=== PATIENT | female | born 1940 | race Caucasian/White ===

== ENCOUNTER → 2017-09-10 | Outpatient (CLI) | payer MEDICARE, BC ==
[2017-09-10 10:09] LABS: HCT 40.6 % (34.0-46.0); HGB 13.4 gm/dL (11.4-16.0); MCH 29.9 pg (25.0-35.0); MCHC 32.9 g/dL (31.0-37.0); MCV 90.9 fL (80.0-100.0); Mean Platelet Volume 6.7; Platelet Count 235 k/uL (150-450); RBC 4.47 m/uL (3.80-5.40); RDW 12.2 % (11.5-15.5); WBC 5.6 k/uL (3.8-10.6)
[2017-09-10 10:19] LABS: ALT 31 U/L (9-52); AST 21 U/L (14-36); Alkaline Phosphatase 60 U/L (38-126); Anion Gap 9 mmol/L; Blood Urea Nitrogen 11 mg/dL (7-17); Calcium 9.5 mg/dL (8.4-10.2); Carbon Dioxide 30 mmol/L (22-30); Chloride 105 mmol/L (98-107); Cholesterol 185 mg/dL (<200); Glucose 96 mg/dL (74-99); HDL Cholesterol 76 mg/dL (40-60); LDL Cholesterol,Calculated 89 mg/dL (0-99); Potassium 3.9 mmol/L (3.5-5.1); Sodium 144 mmol/L (137-145); Total Bilirubin 0.4 mg/dL (0.2-1.3); Total Protein 6.4 g/dL (6.3-8.2); Triglycerides 98 mg/dL (<150)
== END | disposition home or self-care (01) ==
LOC: LABWHC1 09:28
PROVIDERS: ATTEND Family Medicine
DX: E06.9 Thyroiditis, unspecified (principal); I10 Essential (primary) hypertension; E78.00 Pure hypercholesterolemia, unspecified
CPT/HCPCS: 36415; 80053; 80061; 84439; 84443; 85027

== ENCOUNTER → 2018-09-02 | Outpatient (CLI) | payer MEDICARE, BC ==
[2018-09-02 10:22] LABS: HCT 40.3 % (34.0-46.0); HGB 13.3 gm/dL (11.4-16.0); MCH 29.4 pg (25.0-35.0); MCHC 32.9 g/dL (31.0-37.0); MCV 89.3 fL (80.0-100.0); Mean Platelet Volume 6.7; Platelet Count 184 k/uL (150-450); RBC 4.52 m/uL (3.80-5.40); RDW 12.7 % (11.5-15.5); WBC 4.7 k/uL (3.8-10.6)
[2018-09-02 16:25] LABS: Albumin 4.3 g/dL (3.80-4.90); Albumin/Globulin Ratio 2.53 (1.20-2.10); Anion Gap 2.4 mmol/L (4.00-12.00); Calcium 8.9 mg/dL (8.7-10.3); Carbon Dioxide 27.6 mmol/L (21.6-31.8); Globulin 1.7 g/dL (1.6-3.3); LDL Cholesterol,Calculated 111.2 mg/dL (0.0-131.0); Potassium 4.2 mmol/L (3.5-5.5); Total Bilirubin 0.6 mg/dL (0.2-1.2); VLDL Calculation 15.8 mg/dL (5.00-40.00)
== END | disposition home or self-care (01) ==
LOC: LABWHC1 09:26
PROVIDERS: ATTEND Family Medicine
DX: E78.5 Hyperlipidemia, unspecified (principal); E03.9 Hypothyroidism, unspecified; I10 Essential (primary) hypertension
CPT/HCPCS: 36415; 80053; 80061; 84443; 85027

== ENCOUNTER → 2019-09-24 | Outpatient (CLI) | payer MEDICARE, BC ==
[2019-09-24 08:41] LABS: MCH 30.7 pg (25.0-35.0); MCHC 33.3 g/dL (31.0-37.0); MCV 92.3 fL (80.0-100.0); Mean Platelet Volume 7.5; Platelet Count 180 k/uL (150-450); RBC 4.56 m/uL (3.80-5.40); RDW 12.6 % (11.5-15.5)
[2019-09-24 19:05] LABS: African American GFR (CKD) 81.8 (60.0-200.0); Albumin 4.4 g/dL (3.80-4.90); Albumin/Globulin Ratio 2.44 (1.60-3.17); Anion Gap 11.1 mmol/L (4.00-12.00); BUN/Creat Ratio 18.75 Ratio (12.00-20.00); Calcium 9.3 mg/dL (8.7-10.3); Carbon Dioxide 26.9 mmol/L (21.6-31.8); Chol/HDL Ratio 2.73; Globulin 1.8 g/dL (1.6-3.3); LDL Cholesterol,Calculated 104.4 mg/dL (0.0-131.0); Non-African American GFR(CKD) 70.6 (60.0-200.0); Potassium 4.3 mmol/L (3.5-5.5); Total Bilirubin 0.5 mg/dL (0.3-1.2); Total Protein 6.2 g/dL (6.2-8.2); VLDL Calculation 21.6 mg/dL (5.00-40.00)
== END | disposition home or self-care (01) ==
LOC: LABWHC1 08:00
PROVIDERS: ATTEND Family Medicine
DX: E78.2 Mixed hyperlipidemia (principal); I10 Essential (primary) hypertension; E03.9 Hypothyroidism, unspecified
CPT/HCPCS: 36415; 80053; 80061; 84443; 85027

== ENCOUNTER 2024-10-03 11:47 | Inpatient (IN) | payer MEDICARE, BC ==
--- NOTE | 2024-10-03 12:09 | ED ---
General Adult HPI - General Chief complaint: Syncope Stated complaint: Syncope Time Seen by Provider: 10/03/24 11:50 Source: patient, family, EMS, RN notes reviewed Mode of arrival: EMS Limitations: no limitations - History of Present Illness Initial comments: Patient is an 84-year-old female present to the emergency department with syncopal episode. Episode occurred just prior to arrival. Patient was with her son when she started to appear drowsy and leaned towards him. Patient was lowered to the ground and did become unresponsive for 2 to 3 minutes. Following this patient awoke and has returned to normal. Patient does have memory problems and family does have concern with her ability to live at home. - Related Data Home Medications Medication Instructions Recorded Confirmed Levothyroxine Sodium [Synthroid] 75 mcg PO DAILY 10/03/24 10/03/24 lisinopriL [Zestril] 5 mg PO DAILY 10/03/24 10/03/24 Allergies Allergy/AdvReac Type Severity Reaction Status Date / Time No Known Allergies Allergy Verified 10/03/24 12:54 Review of Systems ROS Statement: Those systems with pertinent positive or pertinent negative responses have been documented in the HPI. ROS Other: All systems not noted in ROS Statement are negative. Constitutional: Denies: fever Eyes: Denies: eye pain ENT: Denies: ear pain Respiratory: Denies: dyspnea Cardiovascular: Denies: chest pain Endocrine: Denies: fatigue Gastrointestinal: Denies: abdominal pain Past Medical History Past Medical History: Hypertension Past Psychological History: No Psychological Hx Reported General Exam Limitations: no limitations General appearance: alert, in no apparent distress Head exam: Present: atraumatic, normocephalic Eye exam: Present: normal appearance, PERRL, EOMI ENT exam: Present: normal oropharynx Neck exam: Present: normal inspection. Absent: tenderness, meningismus Respiratory exam: Present: normal lung sounds bilaterally Cardiovascular Exam: Present: regular rate, normal rhythm GI/Abdominal exam: Present: soft. Absent: tenderness Extremities exam: Present: normal inspection Neurological exam: Present: alert, CN II-XII intact. Absent: motor sensory deficit Expanded Neurological exam: Present: protecting the airway Patient oriented to: Absent: person (Oriented only to the first name.), place, time Speech: Present: fluid speech Motor strength exam: RUE: 5, LUE: 5, RLE: 5, LLE: 5 Eye Response: (4) open spontaneously Motor Response: (6) obeys commands Verbal Response: (4) confused conversation Psychiatric exam: Present: normal affect, normal mood Skin exam: Present: normal color Course Vital Signs 10/03/24 11:56 Temperature 96.2 F L Pulse Rate 80 Respiratory 17 Rate Blood Pressure 119/77 O2 Sat by Pulse 96 Oximetry EKG Findings - EKG Results: EKG: interpreted by ERMD (Left axis. LVH criteria.), sinus rhythm, normal ST/T Medical Decision Making - Medical Decision Making Was pt. sent in by a medical professional or institution (, PA, LAND CLEARER, urgent care, hospital, or fpc...) When possible be specific @ -No Did you speak to anyone other than the patient for history (EMS, parent, family, police, friend...)? What history was obtained from this source @ -Family is present helps provide a history of the episode and patient's difficulty living at home Did you review nursing and triage notes (agree or disagree)? Why? @ -I reviewed and agree with nursing and triage notes Were old charts reviewed (outside hosp., previous admission, EMS record, old E KG, old radiological studies, urgent care reports/EKG's, fpc records)? Report findings @ -No old charts were reviewed Differential Diagnosis (chest pain, altered mental status, abdominal pain women, abdominal pain men, vaginal bleeding, weakness, fever, dyspnea, syncope, headache, dizziness, GI bleed, back pain, seizure, CVA, palpatations, mental health, musculoskeletal)? @ -Differential Syncope: Valvular disease, hypertrophic cardiomyopathy, pulmonary embolism, tamponade, tachycardia, bradycardia, WI, hypovolemia, hemorrhage, dissection, anemia, intracranial hemorrhage, seizure, hypoglycemia, carbon monoxide poisoning, this is not meant to be an all-inclusive list. EKG interpreted by me (3pts min.). @ -As above X-rays interpreted by me (1pt min.). @ -Chest x-ray shows no acute process CT interpreted by me (1pt min.). @ -CT scan of the brain does not reveal acute intracranial abnormality U/S interpreted by me (1pt. min.). @ -None done What testing was considered but not performed or refused? (CT, X-rays, U/S, labs)? Why? @ -None What meds were considered but not given or refused? Why? @ -None Did you discuss the management of the patient with other professionals (professionals i.e. , PA, LAND CLEARER, lab, RT, psych nurse, transition social worker, ergonomic specialist, teacher, combat information center officer, corrections caseworker)? Give summary @ -Case with discussed with Dr. Landis and Dr. Milian who will admit covering Dr. Chinchilla, time Was smoking cessation discussed for >3mins.? @ -No Was critical care preformed (if so, how long)? @ -No Were there social determinants of health that impacted care today? How? (Homelessness, low income, unemployed, alcoholism, drug addiction, transportation, low edu. Level, literacy, decrease access to med. care, custodial, rehab)? @ -No Was there de-escalation of care discussed even if they declined (Discuss DNR or withdrawal of care, Hospice)? DNR status @ -No What co-morbidities impacted this encounter? (DM, HTN, Smoking, COPD, CAD, Cancer, CVA, ARF, Chemo, Hep., AIDS, mental health diagnosis, sleep apnea, morbid obesity)? @ -None Was patient admitted / discharged? Hospital course, mention meds given and route, prescriptions, significant lab abnormalities, going to OR and other pertinent info. @ -Patient presents with syncopal episode, resolved on arrival. Eval unremarkable at this time. Patient does have apparent advanced dementia. Patient will be admitted with cardiac consult, admission orders written. Patient reevaluated and patient and family updated. Patient will likely need some sort of placement. Undiagnosed new problem with uncertain prognosis? @ -No Drug Therapy requiring intensive monitoring for toxicity (Heparin, Nitro, Insulin, Cardizem)? @ -No Were any procedures done? @ -No Diagnosis/symptom? @ -Syncope Acute, or Chronic, or Acute on Chronic? @ -Acute Uncomplicated (without systemic symptoms) or Complicated (systemic symptoms)? @ -Default Side effects of treatment? @ -No Exacerbation, Progression, or Severe Exacerbation? @ -No Poses a threat to life or bodily function? How? (Chest pain, USA, WI, pneumonia, PE, COPD, DKA, ARF, appy, cholecystitis, CVA, Diverticulitis, Homicidal, Suicidal, threat to staff... and all critical care pts) @ -No - Lab Data Result diagrams: 10/03/24 12:31 10/03/24 12:31 Lab Results 10/03/24 10/03/24 10/03/24 Range/Units 12:31 12:31 12:31 WBC 3.8 (3.8-10.6) k/uL RBC 4.15 (3.80-5.40) m/uL Hgb 12.6 (11.4-16.0) gm/dL Hct 37.4 (34.0-46.0) % MCV 90.1 (80.0-100.0) fL MCH 30.3 (25.0-35.0) pg MCHC 33.6 (31.0-37.0) g/dL RDW 12.3 (11.5-15.5) % Plt Count 156 (150-450) k/uL MPV 7.5 Neutrophils % 75 % Lymphocytes % 13 % Monocytes % 10 % Eosinophils % 0 % Basophils % 0 % Neutrophils # 2.9 (1.3-7.7) k/uL Lymphocytes # 0.5 L (1.0-4.8) k/uL Monocytes # 0.4 (0-1.0) k/uL Eosinophils # 0.0 (0-0.7) k/uL Basophils # 0.0 (0-0.2) k/uL PT 10.8 (10.0-12.5) sec INR 1.0 (<1.2) APTT 22.7 (22.0-30.0) sec D-Dimer 0.35 (<0.60) mg/L FEU Sodium 140 (137-145) mmol/L Potassium 3.9 (3.5-5.1) mmol/L Chloride 103 (98-107) mmol/L Carbon Dioxide 32 H (22-30) mmol/L Anion Gap 5 mmol/L BUN 20 H (7-17) mg/dL Creatinine 0.92 (0.52-1.04) mg/dL Est GFR (CKD-EPI)AfAm 67 (>60 ml/min/1.73 sqM) Est GFR (CKD-EPI)NonAf 58 (>60 ml/min/1.73 sqM) Glucose 109 H (74-99) mg/dL Calcium 8.8 (8.4-10.2) mg/dL Magnesium 2.3 (1.6-2.3) mg/dL Total Bilirubin 0.5 (0.2-1.3) mg/dL AST 43 H (14-36) U/L ALT 38 H (4-34) U/L Alkaline Phosphatase 55 (38-126) U/L Troponin I (0.000-0.034) ng/mL Total Protein 6.2 L (6.3-8.2) g/dL Albumin 3.9 (3.5-5.0) g/dL 10/03/24 Range/Units 12:31 WBC (3.8-10.6) k/uL RBC (3.80-5.40) m/uL Hgb (11.4-16.0) gm/dL Hct (34.0-46.0) % MCV (80.0-100.0) fL MCH (25.0-35.0) pg MCHC (31.0-37.0) g/dL RDW (11.5-15.5) % Plt Count (150-450) k/uL MPV Neutrophils % % Lymphocytes % % Monocytes % % Eosinophils % % Basophils % % Neutrophils # (1.3-7.7) k/uL Lymphocytes # (1.0-4.8) k/uL Monocytes # (0-1.0) k/uL Eosinophils # (0-0.7) k/uL Basophils # (0-0.2) k/uL PT (10.0-12.5) sec INR (<1.2) APTT (22.0-30.0) sec D-Dimer (<0.60) mg/L FEU Sodium (137-145) mmol/L Potassium (3.5-5.1) mmol/L Chloride (98-107) mmol/L Carbon Dioxide (22-30) mmol/L Anion Gap mmol/L BUN (7-17) mg/dL Creatinine (0.52-1.04) mg/dL Est GFR (CKD-EPI)AfAm (>60 ml/min/1.73 sqM) Est GFR (CKD-EPI)NonAf (>60 ml/min/1.73 sqM) Glucose (74-99) mg/dL Calcium (8.4-10.2) mg/dL Magnesium (1.6-2.3) mg/dL Total Bilirubin (0.2-1.3) mg/dL AST (14-36) U/L ALT (4-34) U/L Alkaline Phosphatase (38-126) U/L Troponin I <0.012 (0.000-0.034) ng/mL Total Protein (6.3-8.2) g/dL Albumin (3.5-5.0) g/dL Disposition Clinical Impression: Syncope Disposition: ADMITTED IP TO THIS HOSP Is patient prescribed a controlled substance at d/c from ED?: No Referrals: Ravindra Chinchilla MD [Primary Care Provider] - 1-2 days Time of Disposition: 14:00
[2024-10-03 12:47] LABS: Basophils % (A) 0 %; Eosinophils % (A) 0 %; HCT 37.4 % (34.0-46.0); HGB 12.6 gm/dL (11.4-16.0); Lymphocytes # (A) 0.5 k/uL (1.0-4.8); Lymphocytes % (A) 13 %; MCH 30.3 pg (25.0-35.0); MCHC 33.6 g/dL (31.0-37.0); MCV 90.1 fL (80.0-100.0); Mean Platelet Volume 7.5; Monocytes # (A) 0.4 k/uL (0-1.0); Monocytes % (A) 10 %; Neutrophils # (A) 2.9 k/uL (1.3-7.7); Neutrophils % (A) 75 %; Platelet Count 156 k/uL (150-450); RBC 4.15 m/uL (3.80-5.40); RDW 12.3 % (11.5-15.5); WBC 3.8 k/uL (3.8-10.6)
[2024-10-03 12:57] LABS: ALT 38 U/L (4-34); AST 43 U/L (14-36); African American GFR (CKD) 67 (>60 ml/min/1.73 sqM); Albumin 3.9 g/dL (3.5-5.0); Alkaline Phosphatase 55 U/L (38-126); Anion Gap 5 mmol/L; Blood Urea Nitrogen 20 mg/dL (7-17); Calcium 8.8 mg/dL (8.4-10.2); Carbon Dioxide 32 mmol/L (22-30); Chloride 103 mmol/L (98-107); Glucose 109 mg/dL (74-99); Magnesium 2.3 mg/dL (1.6-2.3); Non-African American GFR(CKD) 58 (>60 ml/min/1.73 sqM); Potassium 3.9 mmol/L (3.5-5.1); Sodium 140 mmol/L (137-145); Total Bilirubin 0.5 mg/dL (0.2-1.3); Total Protein 6.2 g/dL (6.3-8.2)
[2024-10-03 13:10] LABS: Partial Thromboplastin Time 22.7 sec (22.0-30.0); Prothrombin Time 10.8 sec (10.0-12.5)
--- NOTE | 2024-10-03 13:28 | CT ---
EXAMINATION TYPE: CT brain wo con DATE OF EXAM: 10/03/2024 COMPARISON: None CLINICAL INDICATION: Female, 84 years old with history of syncope; PHH, AMS CT DLP: 1095.9 mGycm Automated exposure control for dose reduction was used. Findings: The ventricles, basal cisterns and sulci over convexities are moderately enlarged consistent with mod erate generalized atrophy, appropriate for the patient's age. There is moderate decreased density in the periventricular white matter consistent with chronic ische yolanda white matter demyelination. There is no mass effect or shift of midline structures. There is no acute intra or extra-axial hemorrhage. The posterior fossa including the brainstem, fourth ventricle and cerebellopontine angles appear kathe sly normal. The intraorbital contents appear normal symmetric There is an air-fluid level in the right maxillary sinus ingesting acute sinusitis. The mastoid air c ells are well aerated Calvarium is intact. IMPRESSION: 1. Age appropriate senescent changes as described above. 2. acute bleed or mass effect. 3.acute right maxillary sinusitis. [facility], , 10/03/2024 1:25 PM
--- NOTE | 2024-10-03 13:30 | XR ---
Chest, 2 view. HISTORY: Syncope COMPARISON: None TECHNIQUE: PA and lateral views the chest are obtained. FINDINGS: The lungs are clear and there is no consolidative or interstitial opacity. There is no pleural effusion or pneumothorax. The heart, pulmonary vasculature, mediastinum and delgado appear normal. The osseous structures are intact. IMPRESSION: No significant abnormality seen. No acute cardiopulmonary disease. [facility], Workstation: [facility], 10/03/2024 1:28 PM
[2024-10-03] MEDS ORDERED: NALOXONE 0.4 MG/ML 1 ML VIAL IV PRN (14:00)
--- NOTE | 2024-10-04 03:03 | HP ---
HISTORY AND PHYSICAL CHIEF COMPLAINT: Syncope. HISTORY OF PRESENT ILLNESS: This is an 84-year-old woman with a past medical history of multiple medical problems including dementia, was apparently living by herself and the family is planning to make some arrangements for ASC placement. However, the patient had a syncopal episode and the patient also appears to be drowsy and leaning towards the patient. The patient became unresponsive for 2 to 3 minutes. Currently, the patient is confused, unable to give any coherent history. The patient is admitted for further evaluation and treatment. There is no history of any fever, rigors, or chills. PAST MEDICAL HISTORY: Reviewed including hypertension, dementia. Rest of the history and rest of the chart is also reviewed. HOME MEDICATIONS: Synthroid. ALLERGIES: None. FAMILY HISTORY: Could not be taken. SOCIAL HISTORY: Could not be taken. REVIEW OF SYSTEMS: Could not be taken. PHYSICAL EXAMINATION: VITAL SIGNS: Pulse is 80, blood pressure 119/76, respirations 17. HEENT: Conjunctivae normal. NECK: No JVD. CARDIOVASCULAR: S1, S2. RESPIRATIONS: Breath sounds diminished at the bases. A few scattered rhonchi. ABDOMEN: Soft, nontender. LEGS: No edema. NERVOUS SYSTEM: Nonfocal. LABORATORY DATA: Noted. ASSESSMENT: 1. Change in mental status and syncope, rule out acute stroke. 2. Dementia. 3. Hypertension. 4. Gait dysfunction. RECOMMENDATIONS AND DISCUSSION: This is an 84-year-old woman, who presented with multiple complex medical issues, we will monitor the patient closely. Continue the current management and continue symptomatic treatment. I recommend Cardiology, Neurology consultation for evaluation of syncope, rule out stroke. Otherwise, a brain CT which was reviewed showed no acute changes. Guarded prognosis because of multiple complex medical issues. Further recommendations to follow. See orders for further details. MMODL / IJN: [id number] /
[2024-10-04] MEDS: LEVOTHYROXINE 75 MCG TAB PO SCH (05:58)
--- NOTE | 2024-10-04 07:32 | US ---
EXAMINATION TYPE: US carotid duplex BILAT DATE OF EXAM: 10/03/2024 COMPARISON: NONE CLINICAL INDICATION: Female, 84 years old with history of stroke; syncope Additional History: R55 Syncope TECHNIQUE: Grayscale, color Doppler and spectral Doppler evaluation of the bilateral carotid systems and vertebral arteries. Indirect Doppler criteria was utilized. FINDINGS: EXAM MEASUREMENTS: RIGHT: Peak Systolic Velocity (PSV) cm/sec ----- Right CCA: 57.5 ----- Right ICA: 67.1 ----- Right ECA: 86.4 ICA/CCA ratio: 1.2 RIGHT: End Diastole cm/sec ----- Right CCA: 12.2 ----- Right ICA: 13.1 ----- Right ECA: 9.9 LEFT: Peak Systolic Velocity (PSV) cm/sec ----- Left CCA: 57.6 ----- Left ICA: 68.5 ----- Left ECA: 59.2 ICA/CCA ratio: 1.2 LEFT: End Diastole cm/sec ----- Left CCA: 13.7 ----- Left ICA: 15.9 ----- Left ECA: 8.9 VERTEBRALS (direction of flow): Right Vertebral: Antegrade Left Vertebral: Antegrade Rhythm: Normal COLD ROLLING MACHINE SETTER NOTES: No significant stenosis seen Color Doppler imaging shows patency with blood flow throughout the carotid artery. Spectral waveforms are within normal limits. IMPRESSION: Right: No hemodynamically significant stenosis. Left: No hemodynamically significant stenosis. Criteria for Assigning % of Stenosis / Diameter reduction (Estimation based on the indirect measurements of the internal carotid artery velocities (ICA PSV). 1. Normal (no stenosis)=ICA PSV < 125 cm/s: ratio < 2.0: ICA EDV<40 cm/s. 2. Less than 50% stenosis=ICA PSV < 125 cm/s: ratio < 2.0: ICA EDV<40 cm/s. 3. 50 to 69% stenosis=ICA PSV of 125 to 230 cm/s: ration 2.0 ? 4.0: ICA EDV 40-100 cm/s. 4. Greater than 70% stenosis to near occlusion= ICA PSV > 230 cm/s: ratio > 4.0: ICA EDV > 100 cm/s. 5. Near occlusion= ICA PSV velocities may be low or undetectable: variable ratio and ICA EDV. 6. Total occlusion=unable to detect flow. [facility], , 10/04/2024 7:30 AM
[2024-10-04 07:45] VITALS: RESP 16; TEMP 98.3
[2024-10-04 08:40] LABS: BUN/Creat Ratio 17.62 Ratio (12.00-20.00); Blood Urea Nitrogen 14.1 mg/dL (9.0-27.0); Chloride 107 mmol/L (96-109); Glucose 83 mg/dL (70-110); Sodium 141 mmol/L (135-145)
[2024-10-04 08:41] LABS: Calcium 8.3 mg/dL (8.7-10.3); Carbon Dioxide 25.3 mmol/L (21.6-31.8)
[2024-10-04] MEDS ORDERED: [UNRECOGNIZED DRUG - OTHER] PO SCH (09:00)
[2024-10-04] MEDS: lisinopriL 5 MG TAB PO SCH (09:09)
[2024-10-04 10:07] LABS: Basophils # (A) 0.01 X 10*3/uL (0.00-0.10); Basophils % (A) 0.3 %; Eosinophils # (A) 0.01 X 10*3/uL (0.04-0.35); Eosinophils % (A) 0.3 %; HCT 36.2 % (37.2-46.3); HGB 12.4 g/dL (12.0-15.0); Lymphocytes # (A) 1.21 X 10*3/uL (0.90-5.00); Lymphocytes % (A) 33.8 %; MCH 30.9 pg (27.0-32.0); MCHC 34.3 g/dL (32.0-37.0); MCV 90.3 FL (80.0-97.0); Mean Platelet Volume 10.1 FL (9.5-12.2); NRBC Per 100 WBC 0 X 10*3/uL (0.00-0.01); Neutrophils # (A) 1.84 X 10*3/uL (1.80-7.70); Neutrophils % (A) 51.3 %; Platelet Count 148 X 10*3/uL (140-440); RBC 4.01 X 10*6/uL (4.10-5.20); RDW 12.7 % (11.5-14.5); WBC 3.58 X 10*3/uL (4.50-10.00)
--- NOTE | 2024-10-04 10:18 | P.CRDCN ---
History of Present Illness History of present illness: HISTORY OF PRESENTING ILLNESS This is a pleasant 84-year-old female past medical history significant for hypertension and hypothyroidism. She does not follow in the office with a elementary school social worker for any reason. We have been asked to see in consultation for syncope. Her nephew was in the room with her, she is mostly nonverbal. He was at hinduism with her yesterday when she started becoming flushed. He helped her take her cold off however she continued to become lethargic and drowsy so they laid her down. According to him she then started snoring and was unresponsive but breathing for about 3 minutes. This has never happened to her in the past. She has no prior history of heart disease, cardiac catheterization or major surgeries to her body. DIAGNOSTICS EKG reveals sinus rhythm heart rate of 67 with left anterior fascicular block. Telemetry tracings indicate sinus rhythm with no evidence of arrhythmia or bradycardia. Chest xray negative for any acute cardiopulmonary process. Bilateral carotid Doppler negative for significant stenosis. Laboratory reviewed, CBC unremarkable, sodium 141, potassium 4, creatinine 0.8, cardiac enzymes negative x 3. Current cardiac medications include lisinopril 5 mg daily. REVIEW OF SYSTEMS At the time of my exam, information obtained from her nephew as she is mostly nonverbal: CONSTITUTIONAL: Denies fever or chills. CARDIOVASCULAR: Denies chest pain, shortness of breath, orthopnea, PND or palpitations. RESPIRATORY: Denies cough. GASTROINTESTINAL: Denies abdominal pain, diarrhea, constipation, nausea or vomiting. MUSCULOSKELETAL: Denies myalgias. NEUROLOGIC: Denies numbness, tingling, headache or weakness. ENDOCRINE: Denies fatigue, weight change, polydipsia or polyurina. GENITOURINARY: Denies burning, hematuria or urgency with micturation. HEMATOLOGIC: Denies history of anemia or bleeding. PHYSICAL EXAMINATION Blood pressure 117/64 heart rate 58 afebrile and maintaining oxygen saturation on room air. CONSTITUTIONAL: No apparent distress. HEENT: Head is normocephalic. Pupils are equal, round. Sclerae anicteric. Mucous membranes of the mouth are moist. No JVD. No carotid bruit. CHEST EXAMINATION: Lungs are clear to auscultation. No chest wall tenderness is noted on palpation or with deep breathing. HEART EXAMINATION: Regular rate and rhythm. S1, S2 heard. Systolic ejection murmur at the base, 1/6, no gallops or rub. ABDOMEN: Soft, nontender. EXTREMITIES: 2+ peripheral pulses, no lower extremity edema and no calf tenderness. NEUROLOGIC EXAMINATION: Patient is awake, alert and oriented x3. Nonverbal. ASSESSMENT Syncope Hypertension PLAN An acute coronary event has been ruled out. Echo has been ordered and will be reviewed. No evidence of significant arrhythmia or bradycardia noted on telemetry. 1 week event monitor at discharge. Follow-up in the office with Dr. Teixeira in 2 to 3 weeks. Stable for discharge from a cardiac perspective for discharge. Thank you kindly for this consultation. Nurse Practitioner note has been reviewed, I agree with a documented findings and plan of care. Patient was seen and examined. Past Medical History Past Medical History: Hypertension History of Any Multi-Drug Resistant Organisms: None Reported Additional Past Surgical History / Comment(s): Thyroidectomy Past Psychological History: No Psychological Hx Reported Smoking Status: Never smoker Medications and Allergies Home Medications Medication Instructions Recorded Confirmed Type Levothyroxine Sodium [Synthroid] 75 mcg PO DAILY 10/03/24 10/03/24 History lisinopriL [Zestril] 5 mg PO DAILY 10/03/24 10/03/24 History Allergies Allergy/AdvReac Type Severity Reaction Status Date / Time No Known Allergies Allergy Verified 10/03/24 12:54 Physical Exam Vitals: Vital Signs Temp Pulse Pulse Resp BP BP Pulse Ox 10/04/24 07:00 98.3 F 58 L 16 117/64 96 10/04/24 01:27 98.5 F 74 18 121/66 96 10/03/24 19:49 98.8 F 75 16 159/70 98 10/03/24 19:24 98.2 F 73 18 108/62 98 10/03/24 18:00 97.9 F 68 17 111/58 96 10/03/24 14:00 97.8 F 72 18 122/68 96 10/03/24 11:56 96.2 F L 80 17 119/77 96 Intake and Output 10/03/24 10/04/24 10/04/24 22:59 06:59 14:59 Other: # Voids 1 1 Results 10/04/24 04:55 10/04/24 04:55 Cardiac Enzymes 10/03/24 10/03/24 10/03/24 Range/Units 12:31 12:31 15:29 AST 43 H (14-36) U/L Troponin I <0.012 <0.012 (0.000-0.034) ng/mL 10/03/24 Range/Units 18:31 AST (14-36) U/L Troponin I <0.012 (0.000-0.034) ng/mL Coagulation 10/03/24 Range/Units 12:31 PT 10.8 (10.0-12.5) sec APTT 22.7 (22.0-30.0) sec CBC 10/03/24 10/04/24 Range/Units 12:31 04:55 WBC 3.8 3.58 L (3.8-10.6) k/uL RBC 4.15 4.01 L (3.80-5.40) m/uL Hgb 12.6 12.4 (11.4-16.0) gm/dL Hct 37.4 36.2 L (34.0-46.0) % Plt Count 156 148 (150-450) k/uL Comprehensive Metabolic Panel 10/03/24 10/04/24 Range/Units 12:31 04:55 Sodium 140 141 (137-145) mmol/L Potassium 3.9 4.0 (3.5-5.1) mmol/L Chloride 103 107 (98-107) mmol/L Carbon Dioxide 32 H 25.3 (22-30) mmol/L BUN 20 H 14.1 (7-17) mg/dL Creatinine 0.92 0.8 (0.52-1.04) mg/dL Glucose 109 H 83 (74-99) mg/dL Calcium 8.8 8.3 L (8.4-10.2) mg/dL AST 43 H (14-36) U/L ALT 38 H (4-34) U/L Alkaline Phosphatase 55 (38-126) U/L Total Protein 6.2 L (6.3-8.2) g/dL Albumin 3.9 (3.5-5.0) g/dL Current Medications Generic Name Dose Route Start Last Admin Trade Name Freq PRN Reason Stop Dose Admin Levothyroxine Sodium 75 mcg 10/04/24 06:30 10/04/24 05:58 Levothyroxine 75 Mcg Tab PO 75 mcg DAILY@0630 MARC Administration Lisinopril 5 mg 10/04/24 09:00 10/04/24 09:09 Lisinopril 5 Mg Tab PO 5 mg DAILY MARC Administration Naloxone HCl 0.2 mg 10/03/24 14:00 Naloxone 0.4 Mg/Ml 1 Ml Vial IV Q2M PRN Opioid Reversal Intake and Output 10/03/24 10/04/24 10/04/24 22:59 06:59 14:59 Other: # Voids 1 1 10/04/24 04:55 10/04/24 04:55
--- NOTE | 2024-10-04 13:21 | CA ---
Transthoracic Echo Report Name: Katlin Pina Age: 84 Gender: F : 1940 Exam Date: 10/04/2024 10:43 Exam Location: [facility] Ht (in): 63 Wt (lb): 115 Ordering Physician: Jarocho Milian MD Attending/Referring Phys: Sanding Machine Operator Or Tender Lorna Anderson RDCS Procedure CPT: Indications: stroke Cardiac Hx: Technical Quality: Fair Contrast 1: Total Dose (mL): Contrast 2: Total Dose (mL): MEASUREMENTS (Male / Female) Normal Values 2D ECHO LV Diastolic Diameter PLAX 4.4 cm 4.2 - 5.9 / 3.9 - 5.3 cm LV Systolic Diameter PLAX 2.5 cm IVS Diastolic Thickness 1.2 cm 0.6 - 1.0 / 0.6 - 0.9 cm LVPW Diastolic Thickness 1.0 cm 0.6 - 1.0 / 0.6 - 0.9 cm LV Relative Wall Thickness 0.5 RV Internal Dim ED PLAX 1.8 cm LA Systolic Diameter LX 2.9 cm 3.0 - 4.0 / 2.7 - 3.8 cm LV Diastolic Volume MOD BP 40.8 cm??? 67 - 155 / 56 - 104 cm??? LV Systolic Volume MOD BP 16.8 cm??? 22 - 58 / 19 - 49 cm??? LV Ejection Fraction MOD BP 58.8 % >= 55 % LV Cardiac Index MOD BP 1323.7 cm???/min???m??? LV Diastolic Volume MOD 4C 47.1 cm??? LV Systolic Volume MOD 4C 22.1 cm??? LV Ejection Fraction MOD 4C 53.1 % LV Cardiac Index MOD 4C 1381.4 cm???/min???m??? LV Diastolic Length 4C 6.3 cm LV Systolic Length 4C 5.3 cm LV Diastolic Volume MOD 2C 31.7 cm??? LV Systolic Volume MOD 2C 12.6 cm??? LV Ejection Fraction MOD 2C 60.3 % LV Cardiac Index MOD 2C 1054.9 cm???/min???m??? LV Diastolic Length 2C 5.5 cm LV Systolic Length 2C 5.0 cm LA Volume 39.3 cm??? 18 - 58 / 22 - 52 cm??? LA Volume Index 25.8 cm???/m??? 16 - 28 cm???/m??? M-MODE Aortic Root Diameter MM 2.9 cm LA Systolic Diameter MM 2.8 cm LA Ao Ratio MM 1.0 AV Cusp Separation MM 1.9 cm DOPPLER AV Peak Velocity 153.0 cm/s AV Peak Gradient 9.4 mmHg AI Peak Velocity 375.0 cm/s AI Peak Gradient 56.3 mmHg AI Pressure Half Time 775.4 ms MV Area PHT 3.1 cm??? Mitral E Point Velocity 74.5 cm/s Mitral A Point Velocity 112.8 cm/s Mitral E to A Ratio 0.7 MV Deceleration Time 241.8 ms TR Peak Velocity 216.8 cm/s TR Peak Gradient 18.8 mmHg Right Ventricular Systolic Press 23.7 mmHg FINDINGS Left Ventricle Left ventricular ejection fraction is estimated at 55-60 %. Mildly increased septal wall thickness. Normal left ventricular systolic function with no obvious regional wall motion abnormalities. Left ventricular cavity size normal. Right Ventricle Normal right ventricular size and function. Right ventricular systolic pressure within normal limits. Right Atrium Normal right atrial size. Left Atrium Normal left atrial size. Mitral Valve Structurally normal mitral valve. [id number] mitral regurgitation. No mitral stenosis. Aortic Valve Trileaflet aortic valve. Diffuse thickening (sclerosis) of the aortic valve cusps without reduced excursion. Moderate aortic regurgitation. Tricuspid Valve Structurally normal tricuspid valve. Mild tricuspid regurgitation. No tricuspid stenosis. Pulmonic Valve Structurally normal pulmonic valve. Moderate pulmonic regurgitation. No pulmonic stenosis. Pericardium No pericardial or pleural effusion. Aorta Normal size aortic root and proximal ascending aorta. CONCLUSIONS Normal LV size and systolic function. Mild to moderate eccentric mitral regurgitation. Moderate aortic regurgitation. Mild tricuspid regurgitation. No pericardial Previewed by: Dr. Rohith Teixeira MD (Electronically Signed) Final Date: 04 October 2024 13:20
[2024-10-04 14:11] VITALS: BP 115/62; PULSE 81
[2024-10-04] MEDS: levETIRAcetam 250 MG TAB PO SCH (14:42)
--- NOTE | 2024-10-04 15:16 | P.CNNES ---
History of Present Illness Consult date: 10/04/24 Requesting physician: Jarocho Milian Reason for Consult: ???stroke History of Present Illness: This is an 84-year-old woman who presented emergency department because of episode of unresponsive with shaking of the extremity. Patient is accompanied with her nephew (Willis) who is at bedside. Yesterday she was at [employer] and around 1030 or 10:40 AM in the morning she leaned on her nephew side (which is her right side). Patient became unresponsive and had shaking of the right upper extremity. He stated the episode lasted for about 3 minutes. Her eyes was closed during this episode. Seems after the episode she had urinary incontinence. She was confused after the episode for 2 to 3 minutes. At baseline patient has history of fusion. Patient does not have any history of dementia. She has limited language but per the nephew she is able to interact with him and has better verbal communication to him as well as the media monitor. Patient resides by herself. No history of seizure or stroke per the nephew. Patient could not tell me if she had any warning sign prior to her passing out episode yesterday. Some of the workup during this hospital visit consisted of: I reviewed the lab workup. CT of the head is reported as age-appropriate senescent changes as described above. I personally reviewed the CT and there is no acute or subacute stroke as well as there is no bleed. Carotid duplex there is no hemodynamically significant stenosis. The echo is completed and the report is normal left ventricle size systolic function. Mild to moderate eccentric mitral regurgitation. Moderate aortic regurgitation. Review of Systems Limited but as per HPI. Past Medical History Past Medical History: Hypertension History of Any Multi-Drug Resistant Organisms: None Reported Additional Past Surgical History / Comment(s): Thyroidectomy Past Psychological History: No Psychological Hx Reported Smoking Status: Never smoker Medications and Allergies Home Medications Medication Instructions Recorded Confirmed Type Levothyroxine Sodium [Synthroid] 75 mcg PO DAILY 10/03/24 10/03/24 History lisinopriL [Zestril] 5 mg PO DAILY 10/03/24 10/03/24 History levETIRAcetam [Keppra] 250 mg PO Q12HR #60 tab 10/04/24 Rx Allergies Allergy/AdvReac Type Severity Reaction Status Date / Time No Known Allergies Allergy Verified 10/03/24 12:54 Physical Examination - Vital Signs Vital Signs: Vital Signs Temp Pulse Pulse Resp BP BP Pulse Ox 10/04/24 14:10 98.3 F 81 16 115/62 98 10/04/24 07:00 98.3 F 58 L 16 117/64 96 10/04/24 01:27 98.5 F 74 18 121/66 96 10/03/24 19:49 98.8 F 75 16 159/70 98 10/03/24 19:24 98.2 F 73 18 108/62 98 10/03/24 18:00 97.9 F 68 17 111/58 96 Intake and Output 10/03/24 10/04/24 10/04/24 22:59 06:59 14:59 Intake Total 221 Balance 221 Intake: Oral 221 Other: # Voids 1 1 3 General: Lying in bed and does not appear in acute distress. Neuro: Limited. Patient is awake alert oriented to self. Upon asking her if she is at home she stated no but cannot tell us where she is at and she stated she is there. Does not know time and per nephew that is her baseline. She has limited language. She is able to identify pen correctly and with glasses she did more time and some cueing and correctly answer correctly. She followed very few simple commands. No facial weakness. No dysarthria. Motor the strength is limited because of her cooperation but was able to lift up upper extremity above gravity. The lowers I had a hard time having her follow the commands of more than the legs and towards the end she was able to wiggle the toes. Patient was showing frustration so I had to abort the exam. Results - Laboratory Findings CBC and BMP: 10/04/24 04:55 10/04/24 04:55 Abnormal Lab Findings: Abnormal Labs 10/03/24 10/03/24 10/04/24 12:31 12:31 04:55 WBC 3.58 L RBC 4.01 L Hct 36.2 L Lymphocytes # 0.5 L Eosinophils # 0.01 L Carbon Dioxide 32 H BUN 20 H Glucose 109 H Calcium AST 43 H ALT 38 H Total Protein 6.2 L 10/04/24 04:55 WBC RBC Hct Lymphocytes # Eosinophils # Carbon Dioxide BUN Glucose Calcium 8.3 L AST ALT Total Protein Assessment and Plan Assessment: This is an 84-year-old woman with likely underlying history of dementia with limited language who presented emergency department because of episode of unresponsiveness yesterday while at [employer] in the morning with right arm shaking then urinary incontinence. Likely new onset seizure. 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 History of COVID Plan: Start the patient on Keppra 250 mg twice a day and after 1 week to go up to 500 mg twice daily. The patient nephew was notified that can cause behavioral/mood side-effects. If it does then recommend switching her over to Vimpat 50 mg twice daily. Seizure precaution Per the [place] DMV because of likely seizure or syncope, avoid driving for 6 months until no further episode from the last event. Avoid heights, avoid swimming assisted or using heavy machinery. Commend the patient to be evaluated by outpatient neurologist for her likely episode of seizure as well as for evaluation of her memory issue. Recommend neuropsych evaluation as an outpatient. Per the nephew he will have the patient be evaluated by Dr. Max since she is known to the family. Will defer the rest of the medical management to primary and other specialist Discussed with the patient's nephew is at bedside as well as the primary team nurse practitioner There is no further neurological workup. Will sign off. Please reconsult if needed. Thank you for the consultation Time with Patient: Greater than 30
--- NOTE | 2024-10-05 04:21 | EEG ---
ELECTROENCEPHALOGRAM REPORT CLINICAL HISTORY: This is an 84-year-old woman with episode of unresponsiveness with jerking of the arms, and later urinary incontinence. The video EEG is obtained to evaluate for seizure epileptiform activity. RELEVANT MEDICATIONS: The patient is not on any antiseizure medications. EEG TYPE: This is a routine 21-channel EEG with video using the 10/20 electrode placement system. DESCRIPTION: Wakefulness is only obtained. During awake state, the background consists of low-to- moderate voltage of 7 to 8 hertz activity that is poorly modulated and sustained. There is no focal slowing. There is moderate to significant myogenic artifact predominantly over the left hemisphere and some right temporal region. Interictal and ictal is none. ACTIVATION PROCEDURE: Photic stimulation did not evoke a posterior driving response. There is no abnormality during the photic stimulation. Hyperventilation is not performed. CLINICAL INTERPRETATION: This is a normal routine EEG. The background slowing is suggestive of moderate encephalopathy. Otherwise, there is no focal slowing, epileptiform discharge, or seizure on the EEG. Clinical correlation is recommended. MMCHRIS / MAHIN: [id number] /
[2024-10-11] MEDS ORDERED: levETIRAcetam 500 MG TAB PO SCH (09:00)
== END 2024-10-04 15:21 | DRG 101 ==
LOC: EC 11:47 → 6NMEDSUR 14:00 → OBSVTOIN 10-04 11:21
PROVIDERS: ADMIT Hospitalist; ATTEND Hospitalist
DX: R56.9 Unspecified convulsions (principal); R47.01 Aphasia; E89.0 Postprocedural hypothyroidism; F03.90 Unspecified dementia, unspecified severity, without behavioral disturbance, psychotic disturbance, mood disturbance, and anxiety; I10 Essential (primary) hypertension; I08.0 Rheumatic disorders of both mitral and aortic valves; R26.9 Unspecified abnormalities of gait and mobility; I44.4 Left anterior fascicular block; R32 Unspecified urinary incontinence; Z79.890 Hormone replacement therapy; Z79.899 Other long term (current) drug therapy; Z86.16 Personal history of COVID-19
CPT/HCPCS: 36415; 70450; 71046; 80048; 80053; 83735; 84484; 85025; 85379; 85610; 85730; 93005; 93270; 93306; 93880; 95816; 99285